=== PATIENT | female | born 1970 | race Caucasian/White ===

== ENCOUNTER 2019-01-26 13:30 | Emergency (ER) | payer OTHER ==
--- NOTE | 2019-01-26 15:15 | RAD REPORT ---
EXAM DESCRIPTION: RAD - Knee Left 3 View - 01/26/2019 3:02 pm CLINICAL HISTORY: PAIN COMPARISON: No comparisons FINDINGS: Moderate osteoarthritic changes affect the medial joint compartment. No fracture, dislocat ion or joint effusion.
--- NOTE | 2019-01-26 15:22 | RAD REPORT ---
EXAM DESCRIPTION: US - Extremity Venous Uni Ltd - 01/26/2019 3:17 pm CLINICAL HISTORY: PAIN Leg swelling and edema. COMPARISON: No comparisons FINDINGS: Left lower extremity venous system was interrogated with Doppler technique. Normal flow, c ompressibility and augmentation was noted. There is no DVT present. IMPRESSION: No evidence of left lower extremity deep venous thrombosis.
--- NOTE | 2019-01-26 15:39 | EDPHYS ---
Physician Documentation [facility] Name: Emily Deng Age: 48 yrs Sex: Female : 1970 Arrival Date: 01/26/2019 Time: 13:31 Bed 28 Private MD: Mona Hicks K ED Physician August Alcantar HPI: 01/26 14:50 This 48 yrs old Female presents to ER via Ambulatory with complaints of Knee cp Pain. 14:50 The patient presents with pain, that is acute. The complaints affect the posterior cp aspect of left knee. Context: resulted from an unknown cause, the patient can fully bear weight, the patient is able to ambulate, with mild difficulty, Problem is a result from a previous injury: No. Onset: The symptoms/episode began/occurred this morning. Modifying factors: the symptoms are aggravated by weight bearing. Associated signs and symptoms: Pertinent negatives calf tenderness, fever, swelling, warmth. Treatment prior to arrival includes: over the counter medications, NSAIDS. 14:50 Severity of symptoms: in the emergency department the symptoms are unchanged, despite cp home interventions. 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 - Social history:: Smoking status: Patient/guardian denies using tobacco. - Ebola Screening: : Patient denies travel to an Ebola-affected area in the 21 days before illness onset. ROS: 14:55 MS/extremity: Positive for pain, tenderness, of the posterior aspect of left knee, cp Negative for injury or acute deformity, decreased range of motion, paresthesias, swelling, warmth. 14:55 Eyes: Negative for injury, pain, redness, and discharge. cp 14:55 Constitutional: Negative for body aches, chills, fever, poor PO intake. 14:55 ENT: Negative for drainage from ear(s), ear pain, sore throat, difficulty swallowing, difficulty handling secretions. 14:55 Cardiovascular: Negative for chest pain, edema, palpitations. 14:55 Respiratory: Negative for cough, shortness of breath, wheezing. 14:55 Skin: Negative for rash. 14:55 All other systems are negative. Exam: 15:00 Head/Face: Normocephalic, atraumatic. cp 15:00 Constitutional: The patient appears in no acute distress, alert, awake, non-toxic, well developed, well nourished. 15:00 Eyes: Periorbital structures: appear normal, Conjunctiva: normal, no exudate, no cp injection, Lids and lashes: appear normal, bilaterally. 15:00 ENT: External ear(s): are unremarkable, Nose: is normal, Mouth: Lips: moist, Oral mucosa: moist, Posterior pharynx: Airway: no evidence of obstruction, patent. 15:00 Chest/axilla: Inspection: normal. 15:00 Cardiovascular: Rate: normal, Rhythm: regular. 15:00 Respiratory: the patient does not display signs of respiratory distress, Respirations: normal. 15:00 Musculoskeletal/extremity: ROM: full passive range of motion, in the left knee, Perfusion: the extremity is normally perfused throughout, Sensation intact. Joints: All joints are normal except the posterior aspect of left knee displays pain at rest, Weight bearing: able to fully bear weight. 15:00 Skin: cellulitis, is not appreciated, no rash present. Vital Signs: 13:45 BP 129 / 90; Pulse 64; Resp 18; Temp 97.4; Pulse Ox 99% on R/A; Weight 88.45 kg (R); aj1 Height 5 ft. 8 in. (172.72 cm) (R); 13:45 Body Mass Index 29.65 (88.45 kg, 172.72 cm) aj1 MDM: 13:56 Patient medically screened. cp 14:50 Differential diagnosis: closed fracture, tendonitis, DVT. cp 15:37 Data reviewed: vital signs, nurses notes, radiologic studies, plain films, ultrasound. cp 15:37 Test interpretation: by ED physician or midlevel provider: plain radiologic studies. cp Counseling: I had a detailed discussion with the patient and/or guardian regarding: the historical points, exam findings, and any diagnostic results supporting the discharge/admit diagnosis, radiology results, the need for outpatient follow up, a family practitioner, to return to the emergency department if symptoms worsen or persist or if there are any questions or concerns that arise at home. 01/26 14:44 Order name: XRAY Knee LEFT 3 view; Complete Time: 15:33 cp 01/26 15:33 Interpretation: Report reviewed. cp 01/26 14:44 Order name: US Extremity Venous Unilateral Ltd; Complete Time: 15:33 cp 01/26 15:34 Interpretation: Report reviewed. cp 01/26 15:34 Order name: Teddy wrap-joint; Complete Time: 16:05 cp 01/26 15:34 Order name: Crutches; Complete Time: 16:05 cp Administered Medications: No medications were administered Disposition: 16:22 Co-signature as Attending Physician, August Alcantar MD I agree with the assessment and kdr plan of care. Disposition: 01/26/19 15:38 Discharged to Home. Impression: Pain in left knee. - Condition is Stable. - Discharge Instructions: Elastic Bandage and RICE, Knee Pain. - Prescriptions for Ibuprofen 800 mg Oral Tablet - take 1 tablet by ORAL route every 8 hours As needed take with food; 30 tablet. Tramadol 50 mg Oral Tablet - take 1 tablet by ORAL route every 8 hours as needed; 12 tablet. - Medication Reconciliation Form, Thank You Letter, Antibiotic Education, Prescription Opioid Use form. - Follow up: Private Physician; When: 2 - 3 days; Reason: Recheck today's complaints. - Problem is new. - Symptoms have improved. Signatures: Dispatcher [employer] EDTyesha Otto RN RN aj1 August Alcantar MD MD kdr Hernando Santiago PA PA cp Corrections: (The following items were deleted from the chart) 16:20 15:38 01/26/2019 15:38 Discharged to Home. Impression: Pain in left knee. Condition is aj1 Stable. Forms are Medication Reconciliation Form, Thank You Letter, Antibiotic Education, Prescription Opioid Use. Follow up: Private Physician; When: 2 - 3 days; Reason: Recheck today's complaints. Problem is new. Symptoms have improved. cp
--- NOTE | 2019-01-26 15:39 | ER ---
Nurse's Notes [facility] Name: Emily Deng Age: 48 yrs Sex: Female : 1970 Arrival Date: 01/26/2019 Time: 13:31 Bed 28 Private MD: Mona Hicks K Diagnosis: Pain in left knee Presentation: 01/26 13:42 Presenting complaint: Patient states: "I woke up at 0630 this morning with severe aj1 throbbing behind my left knee, I've taken Motrin and put heat on it but the pain isn't going away" Denies swelling to left leg. Denies injury to left leg. Transition of care: patient was not received from another setting of care. Onset of symptoms was January 26, 2019 at 06:30. Risk Assessment: Do you want to hurt yourself or someone else? Patient reports no desire to harm self or others. Initial Sepsis Screen: Does the patient meet any 2 criteria? No. Patient's initial sepsis screen is negative. Does the patient have a suspected source of infection? No. Patient's initial sepsis screen is negative. Care prior to arrival: None. 13:42 Method Of Arrival: Ambulatory aj 13:42 Acuity: RICHIE 3 aj1 Triage Assessment: 13:45 General: Appears in no apparent distress. comfortable, Behavior is calm, cooperative, aj1 appropriate for age. Pain: Complains of pain in posterior aspect of left knee Pain currently is 8 out of 10 on a pain scale. Is intermittent. EENT: No signs and/or symptoms were reported regarding the EENT system. Neuro: Level of Consciousness is awake, alert, obeys commands, Oriented to person, place, time, situation. Cardiovascular: Patient's skin is warm and dry. Respiratory: Airway is patent Respiratory effort is even, unlabored, Respiratory pattern is regular, symmetrical. GI: No signs and/or symptoms were reported involving the gastrointestinal system. : No signs and/or symptoms were reported regarding the genitourinary system. Derm: Skin is pink, warm \\T\\ dry. normal. Musculoskeletal: Range of motion: intact in all extremities. 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 - Social history:: Smoking status: Patient/guardian denies using tobacco. - Ebola Screening: : Patient denies travel to an Ebola-affected area in the 21 days before illness onset. Screenin:46 Abuse screen: Denies threats or abuse. Denies injuries from another. Nutritional aj1 screening: No deficits noted. Tuberculosis screening: No symptoms or risk factors identified. 16:07 Fall Risk No fall in past 12 months (0 pts). No secondary diagnosis (0 pts). No IV (0 aj1 pts). Ambulatory Aid- Crutches/Cane/Walker (15 pts). Gait- Impaired (20 pts.). Mental Status- Oriented to own ability (0 pts). Total Steinberg Fall Scale indicates Low Risk Score (25-44 pts). As available Patient and Family Educated on Fall Prevention Program and strategies. Assessment: 13:46 Reassessment: see triage note. aj1 14:45 Reassessment: Patient appears in no apparent distress at this time. No changes from aj1 previously documented assessment. Patient and/or family updated on plan of care and expected duration. Pain level reassessed. Patient is alert, oriented x 3, equal unlabored respirations, skin warm/dry/pink. 15:45 Reassessment: Patient appears in no apparent distress at this time. No changes from aj1 previously documented assessment. Patient and/or family updated on plan of care and expected duration. Pain level reassessed. Patient is alert, oriented x 3, equal unlabored respirations, skin warm/dry/pink. Vital Signs: 13:45 BP 129 / 90; Pulse 64; Resp 18; Temp 97.4; Pulse Ox 99% on R/A; Weight 88.45 kg (R); aj1 Height 5 ft. 8 in. (172.72 cm) (R); 13:45 Body Mass Index 29.65 (88.45 kg, 172.72 cm) aj1 ED Course: 13:31 Patient arrived in ED. mr 13:32 Mona Hicks MD is Private Physician. mr 13:44 Triage completed. aj1 13:45 Arm band placed on Patient placed in an exam room. aj1 13:46 Patient has correct armband on for positive identification. Bed in low position. Call aj1 light in reach. Side rails up X 1. 13:46 No provider procedures requiring assistance completed. aj1 13:56 Hernando Santiago PA is PHCP. cp 13:56 August Alcantar MD is Attending Physician. cp 15:00 XRAY Knee LEFT 3 view In Process Unspecified. EDMS 15:19 US Extremity Venous Unilateral Ltd In Process Unspecified. EDMS 15:52 Tyesha Banks, RN is Primary Nurse. aj1 16:06 Patient did not have IV access during this emergency room visit. aj1 16:07 Teddy wrap to left knee. aj1 Administered Medications: No medications were administered Outcome: 15:38 Discharge ordered by MD. cp 16:08 Discharged to home with crutches. aj1 16:08 Condition: good 16:08 Discharge instructions given to patient, Instructed on discharge instructions, follow up and referral plans. medication usage, Demonstrated understanding of instructions, follow-up care, medications, Prescriptions given X 2. 16:20 Patient left the ED. aj1 Signatures: Dispatcher [employer] EDKS Tyesha Banks, RN RN aj1 Tanisha Gay mr Hernando Santiago PA PA cp
[2019-01-26 16:30] VITALS: BP 129/90; TEMP 97.4; O2SAT 99
== END 2019-01-26 16:20 | disposition home or self-care (01) ==
LOC: ER 13:30
DX: M25.562 Pain in left knee (principal)
CPT/HCPCS: 93971; 99283

== ENCOUNTER 2019-10-27 10:03 | Day surgery (SDC) | payer OTHER ==
[2019-10-20 11:07] LABS: Basophils % 1.1 % (0-1.3); Hematocrit 34.5 % (36.0-45.0); Lymphocytes % 17.7 % (15.3-44.8); MPV 8.2 fL (7.6-11.3)
[2019-10-20 11:43] LABS: Anisocytosis 1+; Blood Morphology Comment NOTED (NOT SEEN); Platelet Estimate ADEQ
[2019-10-27] MEDS ORDERED: Ringers Lactate 1,000 ML IV ONE ×2 (10:27→13:46)
[2019-10-27] MEDS ORDERED: CEFAZOLIN/SWI 1gm 1 GM/10 ML SYR ONE (10:28)
[2019-10-27] MEDS ORDERED: CEFAZOLIN/SWI 2gm 2 GM/20 ML SYR ONE (10:28)
[2019-10-27 10:45] VITALS: TEMP 97.9
[2019-10-27] MEDS ORDERED: FENTANYL CITR 100 MCG/2 ML ONE (11:36)
[2019-10-27] MEDS ORDERED: propofoL 200 MG/20 ML VIAL IV ONE ×3 (11:36→13:22)
[2019-10-27] MEDS ORDERED: LIDOCAINE 2% MPF 5 ML VIAL ONE (11:36)
[2019-10-27] MEDS ORDERED: MIDAZOLAM HCL 2 MG/2 ML INJ ONE (11:37)
[2019-10-27] MEDS ORDERED: LIDOCAINE 1% W/EPI 1:100,000 MDV 20 ML VIAL ONE (12:14)
[2019-10-27] MEDS ORDERED: LIDOCAINE 1% MPF 30 ML VIAL ONE (12:14)
[2019-10-27] MEDS ORDERED: KETOROLAC 30 MG/ML INJ ONE (12:59)
[2019-10-27] MEDS ORDERED: dexAMETHasone 10 MG/ML VIAL ONE (12:59)
[2019-10-27] MEDS ORDERED: ONDANSETRON 4 MG/2 ML VIAL ONE (13:00)
[2019-10-27] MEDS ORDERED: IBUPROFEN 400 MG TAB ONE (13:55)
[2019-10-27] MEDS ORDERED: IBUPROFEN 200 MG TAB PO ONE (13:55)
[2019-10-27 13:59] VITALS: BP 118/62; O2SAT 99
[2019-10-27] MEDS ORDERED: SCOPOLAMINE HYDROBROMIDE PATCH TD ONE (14:01)
--- NOTE | 2019-10-28 00:54 | OP ---
Date of Procedure: 10/27/2019 Surgeon: Meeta Salas MD Director Case Management: None. Preoperative Diagnosis: Abnormal uterine bleeding (O/A) and the patient with blood loss anemia and e ndometrial polyps. Postoperative Diagnosis: Abnormal uterine bleeding (O/A) and the patient with blood loss anemia and endometrial polyps. Procedures Performed: 1.Hysteroscopy, polypectomy, dilatation and curettage. 2.Endometrial ablation with NovaSure. Anesthesia: MAC. Complications: None. Drains: None. Condition: The patient's condition stable. Findings: Uterine cavity 5 cm, width 4.6. Power setting, 127 borges and T was 1 minute and 16 second s. Inside the cavity prior to the ablation, there were polypoid masses, especially 1 larger pseudopo lyp right lateral posterior wall. The rest of the cavity appeared to be unremarkable. The base of t hese polypoid lesions was loosened with the help of scissors and then they were retrieved completely. The endometrial sample was handed off for permanent pathology. The patient is a 49-year-old premenopausal lady presented with heavy menstrual bleeding. She has his tory of exposure to progesterone for hormone therapy for other reasons from clinic in [place] until 1 year ago. After transvaginal ultrasound, the endometrium had the appearance to be thickened, endometrial sampli ng was performed after evaluation with D and C, hysteroscopy in the office and the polypoid lesions w ere seen, but the endometrial curettings of the entire global pelvic peritoneum was negative for atyp ia or malignancy. We talked about the conservative options of observation, IUD or ablation. The pat ient was consented for an ablation as this is what she chose and she was brought to the OR. Description Of Procedure: 3 g of Ancef was given, re-consented, taken back, placed in supine fashion on the operating table, MAC given, placed in dorsal lithotomy position. Vulva and vagina prepped an d draped in a sterile fashion, speculum placed to expose the cervix. Anterior lip injected with 1% l idocaine mixed with 1:100,000 epinephrine at 12 o'clock and 4 and 8 o'clock positions of the cervicov aginal junction for a paracervical block. Then using a SlimLine diagnostic hysteroscope, as there wa s no MyoSure LITE present, went into the uterine cavity, confirmed the findings as dictated above. T he large MyoSure tissue extraction system was not necessary for this patient's small polypoid lesions . This could cause inadvertent excessive endometrial dissection and bleeding, so chose to use polyp forceps and polypectomy scissors through the hysteroscope and the operating channel. Once these were loosened at the base, they were grasped with the tips of the hysteroscopic graspers and pulled out. Endometrial curettings were performed for the larger polyp. After the larger polyp was removed, the n the scope was placed to rinse the cavity out and then measured under direct vision, 9 cm total soun ding length, cervical length slightly over 4 cm. The calculated cavity length was 5 cm, then the Nov aSure was taken and was activated, inserted into the uterine cavity and deployed. The width was 4.6 cm. Once all the information was input into the power generator, then ablation cycle was started aft er cavity integrity test was passed, had to clamp the cervical canal in order to get a good seal. On the second try, the system passed and an ablation was performed without any problems as dictated abo cari. The device was undeployed and hysteroscope was placed. Thorough irrigation of the uterine cavit y was done. There was excellent ablation effect globally. Scope pulled out. Instrument, needle, an d sponge counts were done and were correct at the end of the case. The patient will follow up with me in 1 month. If there are any problems, s he will call as needed. PHANI/JOSETTE Voice ID: [id number] Report ID: [id number]
== END 2019-10-27 14:02 | disposition home or self-care (01) ==
LOC: OR 10:03
PROVIDERS: ATTEND Obstetrics & Gynecology
PROC: 0U5B8ZZ Destruction of Endometrium, Via Natural or Artificial Opening Endoscopic (ICD-10-PCS; principal; 2019-10-27 11:00)
PROC: 0UDB7ZX Extraction of Endometrium, Via Natural or Artificial Opening, Diagnostic (ICD-10-PCS; 2019-10-27 11:00)
DX: N92.1 Excessive and frequent menstruation with irregular cycle (principal); N84.0 Polyp of corpus uteri; D50.0 Iron deficiency anemia secondary to blood loss (chronic); E03.9 Hypothyroidism, unspecified; E05.00 Thyrotoxicosis with diffuse goiter without thyrotoxic crisis or storm; E06.3 Autoimmune thyroiditis; F41.9 Anxiety disorder, unspecified; Z11.59 Encounter for screening for other viral diseases; E66.9 Obesity, unspecified; Z68.33 Body mass index [BMI] 33.0-33.9, adult; Z88.6 Allergy status to analgesic agent; Z80.3 Family history of malignant neoplasm of breast
CPT/HCPCS: 85025; 36415; 81025; 88305; 58563; U0002; J2704 ×3; J2250; J3010; J1100; J0690 ×2; J7120 ×2; J2405